=== PATIENT | male | born 1950 | race Caucasian/White ===

== ENCOUNTER 2017-04-16 21:42 | Observation (INO) ==
--- NOTE | 2017-04-16 22:05 | Emergency Department Note ---
Disposition Clinical Impression: Chest pain Disposition: Admitted As Inpatient Condition: Undetermined General Adult HPI - General Chief complaint: ED Chest Pain Stated complaint: Chest pressure, arm numbness Time Seen by Provider: 04/16/17 22:01 Source: patient Limitations: no limitations - History of Present Illness Pain Scale: 5 - Related Data Home Medications Medication Instructions Recorded Confirmed Lisinopril-HCTZ 10-12.5 [Prinzide 1 each PO DAILY 04/17/17 04/17/17 10-12.5] Rosuvastatin Calcium [Crestor] 40 mg PO DAILY 04/17/17 04/17/17 Allergies Allergy/AdvReac Type Severity Reaction Status Date / Time No Known Allergies Allergy Verified 06/24/15 15:38 Past Medical History - Past Medical History Medical history: Reports: cancer, hypertension Surgical history: Reports: cancer surgery Psychiatric history: Reports: no psych history - Social History Smoking Status: Former smoker Smokeless Tobacco Status: No Alcohol use: Reports: none Drug use: Reports: none Physical Exam - General Limitations: no limitations General appearance: alert, in no apparent distress Course Vital Signs Temperature 97.8 F 04/16/17 21:44 Pulse Rate 82 04/16/17 21:44 Respiratory Rate 18 04/16/17 21:44 Blood Pressure 186/96 04/16/17 21:44 O2 Sat by Pulse Oximetry 98 04/16/17 21:44 Temperature 97.5 F L 04/17/17 03:02 Pulse Rate 55 04/17/17 03:02 Respiratory Rate 16 04/17/17 03:02 Blood Pressure 120/63 04/17/17 03:02 O2 Sat by Pulse Oximetry 93 04/17/17 03:02 Oxygen Delivery Oxygen Delivery Room Air Medical Decision Making - Lab Data Result diagrams: 04/16/17 22:59 04/16/17 22:59 Lab Results 04/16/17 04/16/17 04/16/17 Range/Units 22:59 22:59 22:59 WBC 6.8 (4.3-11.1) K/mcL RBC 4.52 (4.19-5.50) M/mcL Hgb 12.9 (12.9-16.9) g/dL Hct 38.9 (37.5-50.1) % MCV 86.1 (83.0-100.0) fL MCH 28.5 (28.0-33.3) pg MCHC 33.2 (31.6-35.5) g/dL RDW 12.7 (11.5-14.5) % Plt Count 174 (140-400) K/mcL MPV 11.9 (9.4-12.4) fL Immature Gran % 0.3 (0-4) % Seg Neutrophils % 57.5 % Lymphocytes % 27.3 % Monocytes % 9.1 % Eosinophils % 5.1 % Basophils % 0.7 % Neutrophils # 3.9 (1.6-8.9) K/mcL Lymphocytes # 1.9 (0.6-4.6) K/mcL Monocytes # 0.6 (0.0-1.3) K/mcL Eosinophils # 0.4 (0.0-0.6) K/mcL Basophils # 0.1 (0.0-0.2) K/mcL Sodium 139 (136-145) mEq/L Potassium 4.1 (3.5-4.5) mEq/L Chloride 106 (98-109) mEq/L Carbon Dioxide 25 (19-29) mEq/L BUN 18 (8-26) mg/dL Creatinine 1.27 H (0.72-1.25) mg/dL Est GFR ( Amer) > 60 (> 60) Est GFR (Non-Af Amer) 56 L (> 60) BUN/Creatinine Ratio 14 (6-26) Glucose 101 H (70-99) mg/dL Calculated Osmolality 290 (280-300) Calcium 9.4 (8.6-10.8) mg/dL Troponin I 0.01 (0-0.03) ng/mL Attestation Statement - Attestation Attestation: I examined this patient and my medical decision-making was reviewed with the ASSEMBLER TRACTOR/PA/Advanced Practice Nurse/Resident Physician. I agree with the documented findings, disposition and treatment plan as described except to the extent set forth below. Face to face time provided Patient presents with chest discomfort. He also had some numbness involving his left upper extremity today. He appears in no acute distress. EKG reviewed by me. Patient seen and evaluated in conjunction with the resident physician
--- NOTE | 2017-04-16 22:08 | Emergency Department Note ---
Disposition Clinical Impression: Chest pain Qualifiers: Chest pain type: unspecified Qualified Code(s): R07.9 - Chest pain, unspecified Disposition: Admitted As Inpatient Condition: Undetermined Referrals: Stepan Pelayo DO [Primary Care Provider] - Forms: ED Satisfaction Letter Time of Disposition: 00:08 Chest Pain HPI - General Chief Complaint: ED Chest Pain Stated Complaint: Chest pressure, arm numbness Time Seen by Provider: 04/16/17 22:01 Source: patient Mode of arrival: ambulatory Limitations: no limitations Vital Signs Reviewed: Yes Nursing Notes Reviewed: Yes - History of Present Illness HPI Narrative: 66-year-old male with recent diagnosis of hypertension and hypercholesterolemia arrives [facility] emergency department complaining of left- sided chest pain that started earlier today. The patient does state for the past few days he has felt fatigued and unable to perform his daily tasks because he has felt run down. The patient denies any difficulty breathing with this episode. The patient does state that he was expressing left arm numbness prior to the chest pain. This occurred at roughly 5:00 this evening. The patient denies any specific symptoms at this time. He states the numbness turned into a pressure when he started experiencing a left-sided chest pain. Both of which are subsided at this time. Patient denies any other complaints at this time. Patient states he is scared that he is having an MD. The patient 's last stress test was over 5 years ago. No smoking, no diabetes, family history of father at age 55 having MD. Patient denies any other complaints. Pt complaint: chest pain Onset (ago): hour(s) (5) Pain Location: left chest Severity: moderate Severity scale (1-10): 5 Quality: tightness Pain Radiation: none Improves with: nothing Worsens with: nothing Associated symptoms: Reports: diaphoresis Treatments prior to arrival chest pain: none - Related Data On Oral Contraceptives: No Previous Rx's Medication Instructions Recorded Cephalexin [Keflex] 500 mg PO QID #28 capsule 06/24/15 Allergies Allergy/AdvReac Type Severity Reaction Status Date / Time No Known Allergies Allergy Verified 06/24/15 15:38 All systems ED: reviewed and negative except as stated. Constitutional: Denies: fever, chills, weakness, weight change Eyes: Denies: eye pain, eye discharge, vision change ENT ED: Denies: ear pain, throat pain, dental pain, hearing loss, epistaxis, congestion, dysphagia Cardiovascular: Reports: chest pain. Denies: palpitations, dyspnea on exertion , edema, syncope Respiratory: Denies: cough, dyspnea, wheezes, hemoptysis, stridor Gastrointestinal: Denies: abdominal pain, nausea, vomiting, diarrhea, constipation, hematemesis, melena, hematochezia Musculoskeletal: Denies: back pain, neck pain, arthralgia, myalgia Integumentary: Denies: rash, abrasion, lesions Neurological: Denies: headache, weakness, numbness, paresthesias, confusion, abnormal gait, vertigo Chest Pain PMH - Past Medical History Medical history: Reports: cancer, hypertension Surgical history: Reports: cancer surgery Psychiatric history: Reports: no psych history Prior Cardiac Testing/Procedures: Stress Test (>5 years ago) - Social History Smoking Status: Former smoker Alcohol use: Reports: none Drug use: Reports: none Physical Exam - General Limitations: no limitations General appearance: alert, in no apparent distress - ENT ENT exam: normal exam, normal oropharynx, mucous membranes moist - Neck Neck exam: Present: normal inspection, full ROM, trachea midline - Chest Chest inspection: Present: normal inspection, symmetric chest wall rise - Respiratory Respiratory exam: Present: normal lung sounds bilaterally - Cardiovascular Cardiovascular exam: Present: regular rate, normal rhythm, normal heart sounds - Abdominal Exam Abdominal exam: Present: soft, Non-Tender. Absent: tenderness, distention, guarding, rebound, rigidity - Extremities Exam Extremities exam: Present: normal inspection, full ROM. Absent: tenderness, pedal edema Course Vital Signs Temperature 97.8 F 04/16/17 21:44 Pulse Rate 82 04/16/17 21:44 Respiratory Rate 18 04/16/17 21:44 Blood Pressure 186/96 04/16/17 21:44 O2 Sat by Pulse Oximetry 98 04/16/17 21:44 Temperature 97.8 F 04/16/17 21:44 Pulse Rate 62 04/16/17 23:36 Respiratory Rate 18 04/16/17 23:36 Blood Pressure 145/86 04/16/17 23:36 O2 Sat by Pulse Oximetry 96 04/16/17 23:36 Oxygen Delivery Oxygen Delivery Room Air Chest Pain - MDM Narrative Medical decision making narrative: Negative workup for any acute findings here in the emergency Department. Given the patient's symptoms and history without a previous workup we will admit the patient to the hospital for chest pain workup. Patient agrees to plan. Accepted by the hospitalist. - Lab Data Lab results reviewed: Yes I reviewed the patient's lab results. Result diagrams: 04/16/17 22:59 04/16/17 22:59 Lab Results 04/16/17 04/16/17 04/16/17 Range/Units 22:59 22:59 22:59 WBC 6.8 (4.3-11.1) K/mcL RBC 4.52 (4.19-5.50) M/mcL Hgb 12.9 (12.9-16.9) g/dL Hct 38.9 (37.5-50.1) % MCV 86.1 (83.0-100.0) fL MCH 28.5 (28.0-33.3) pg MCHC 33.2 (31.6-35.5) g/dL RDW 12.7 (11.5-14.5) % Plt Count 174 (140-400) K/mcL MPV 11.9 (9.4-12.4) fL Immature Gran % 0.3 (0-4) % Seg Neutrophils % 57.5 % Lymphocytes % 27.3 % Monocytes % 9.1 % Eosinophils % 5.1 % Basophils % 0.7 % Neutrophils # 3.9 (1.6-8.9) K/mcL Lymphocytes # 1.9 (0.6-4.6) K/mcL Monocytes # 0.6 (0.0-1.3) K/mcL Eosinophils # 0.4 (0.0-0.6) K/mcL Basophils # 0.1 (0.0-0.2) K/mcL Sodium 139 (136-145) mEq/L Potassium 4.1 (3.5-4.5) mEq/L Chloride 106 (98-109) mEq/L Carbon Dioxide 25 (19-29) mEq/L BUN 18 (8-26) mg/dL Creatinine 1.27 H (0.72-1.25) mg/dL Est GFR ( Amer) > 60 (> 60) Est GFR (Non-Af Amer) 56 L (> 60) BUN/Creatinine Ratio 14 (6-26) Glucose 101 H (70-99) mg/dL Calculated Osmolality 290 (280-300) Calcium 9.4 (8.6-10.8) mg/dL Troponin I 0.01 (0-0.03) ng/mL - Radiology Data Radiology results reviewed: Yes I reviewed the patient's radiology results. - EKG Data EKG attestation: Yes I reviewed and interpreted this EKG. EKG results narrative: Heart rate 71 bpm. NC interval 176 ms. QTC 374 ms. Normal axis. Normal sinus rhythm. No ST elevation or ST depression noted. EKG from April 042014 similar appearance of the exception of mild changes to QRS in lead 3. No other acute changes noted. Heart Score - Score History: Moderately Suspicious EKG: Normal Age: Greater than 65 Risk Factors: 1-2 risk factors Troponin: Less than normal limit HEART Score Total: 4
[2017-04-16 23:08] LABS: Basophils # 0.1 K/mcL (0.0-0.2); Basophils % 0.7 %; Eosinophils # 0.4 K/mcL (0.0-0.6); Eosinophils % 5.1 %; Hematocrit 38.9 % (37.5-50.1); Hemoglobin 12.9 g/dL (12.9-16.9); Immature Granulocytes % 0.3 % (0-4); Lymphocytes # 1.9 K/mcL (0.6-4.6); Lymphocytes % 27.3 %; Mean Corpuscular HGB Conc 33.2 g/dL (31.6-35.5); Mean Corpuscular Hemoglobin 28.5 pg (28.0-33.3); Mean Corpuscular Volume 86.1 fL (83.0-100.0); Mean Platelet Volume 11.9 fL (9.4-12.4); Monocytes # 0.6 K/mcL (0.0-1.3); Monocytes % 9.1 %; Neutrophils # 3.9 K/mcL (1.6-8.9); Platelet Count 174 K/mcL (140-400); Red Blood Count 4.52 M/mcL (4.19-5.50); Red Cell Distribution Width 12.7 % (11.5-14.5); Segmented Neutrophils % 57.5 %
[2017-04-16 23:40] LABS: BUN/Creatinine Ratio 14 (6-26); Blood Urea Nitrogen 18 mg/dL (8-26); Calcium 9.4 mg/dL (8.6-10.8); Carbon Dioxide 25 mEq/L (19-29); Glucose 101 mg/dL (70-99); Osmolality,Calculated 290 (280-300); Sodium 139 mEq/L (136-145); eGFR For African Americans > 60 (> 60); eGFR For Non-African Americans 56 (> 60)
[2017-04-16 23:41] LABS: Chloride 106 mEq/L (98-109); Potassium 4.1 mEq/L (3.5-4.5)
[2017-04-17] MEDS ORDERED: 0.9 % Sodium Chloride 1,000 ML IVC ONE (00:08)
[2017-04-17] MEDS ORDERED: 0.9 % Sodium Chloride 1,000 ML IVC SCH (02:45)
--- NOTE | 2017-04-17 02:54 | Internal Med History&Physical ---
Date of Encounter: 04/17/17 Time of Encounter: 02:49 Assessment and Plan (1) Lightheadedness Current visit: Yes Status: Acute Suspected this is related to orthostasis probably related to recent initiation of diuretics causing element of dehydration and hypotension. Check orthostatics , hydrate. PT/OT. No focal neuro deficits. Check stool for occult blood (2) Chest pain Current visit: Yes Status: Acute EKG shows no ischemic changes. Serial cardiac markers. Patient drives his bike 20 miles every day without any chest pain. If cardiac enzymes are normal stress tests will be performed Qualifiers: Chest pain type: unspecified Qualified Code(s): R07.9 - Chest pain, unspecified Internal Medicine - H&P: HPI Chief complaint: chest pain History of present illness: Mr. Galvez is a 66 year old male was recently diagnosed hypertension a month ago started on lisinopril hydrochlorothiazide combination, dyslipidemia. Was otherwise fairly active, rides his bike 20 miles every day, presents an emergency room today with a man complaining of chest pain. Patient mentioned that for the past couple weeks is not been riding his bike because he has been feeling more lethargic as well as lightheaded especially when he stands up. He has actually been diagnosed with hypertension about a month ago started on lisinopril/hydrochlorothiazide combination. He has been checking his blood pressure during that period mentioned that his pressure was occasionally low with systolic and the 100s range. Today patient started feeling left pectoral chest pain with numbness in the left upper extremity was concerned that came to hospital for further evaluation. He denies any relational of pain to exertion. Never gets this pain with when he exerts himself. More single pane with coughing or deep inspiration. His hemoglobin stable at baseline. He does not take any anticoagulants medications. Denies any focal upper or lower extremity weakness or speech sluriness Past Med Surg Social Fam HX - Past Medical History Medical history: cancer, hypertension Psychiatric history: no psych history - Past Surgical History Surgical History: cancer surgery - Social History Smoking Status: Former smoker Smokeless Tobacco Status: No Alcohol use: none Drug use: none - Family History Father Hx Family Cardiac Disorders: Yes (MYOCARDIAL INFARCTION.) Internal Medicine - H&P: Meds Lisinopril-HCTZ 10-12.5 [Prinzide 10-12.5] 1 each PO DAILY 04/17/17 [History] Rosuvastatin Calcium [Crestor] 40 mg PO DAILY 04/17/17 [History] Allergies No Known Allergies Allergy (Verified 06/24/15 15:38) All Systems PM: A 10-system review of systems was performed and is negative for pertinent findings except as documented above in the HPI. Review of systems: 10 point review of systems is negative except for HPI - Constitutional Vitals: Temp Pulse Resp BP Pulse Ox 97.5 F L 58 16 151/80 94 04/17/17 00:55 04/17/17 00:55 04/17/17 00:55 04/17/17 00:55 04/17/17 00:55 Exam: Gen.: patient is alert oriented times 3 not in distress cardiac: Normal S1, S2, no additional sounds or murmurs chest: Clear to auscultation Abdomen: Soft, non tender, non-distended. No rebound lower extremity Lax calf muscles no swelling Neuro: no focal deficits Internal Med - H&P Results - Labs CBC & Chem 7: 04/16/17 22:59 04/16/17 22:59
[2017-04-17] MEDS ORDERED: *HR* Heparin 5,000 UNIT/ML VIAL SQ SCH (06:00)
[2017-04-17] MEDS ORDERED: Famotidine 20 MG TABLET PO SCH (09:00)
--- NOTE | 2017-04-17 13:43 | Nuclear Medicine Stress Report ---
Exercise Nuclear Stress Name: Jorge Galvez Date of Study: 04/17/2017 Date: 1950 Ht: 78.0 in Medical Record#: [id number] Age: 66 Wt: 261.0 lb Gender: Male Order #: [id number] Location: [facility] IP Room: [facility] Supervising Provider: Nancy Quach CNP Reading Physician: Gee Chen DO, FAC, [facility] Ordering Physician: Ny Bellamy CNP Primary Care Physician: Nigel Pardo MD Stress Technologist: Caleb Ann CRT Coconut Candy Maker: Hayde Senior Indications: Chest pain Impression: Exercise ECG is negative for ischemia. Patient had no chest pain during stress. Gated EF = 56%. There is a small sized, mild intensity, fixed apical inferior and apex defect c/w artifact. Perfusion imaging was negative for ischemia or infarct. History: Hypertension Hypercholesteremia Stress Test Summary: Stress Test Type: Treadmill Baseline Information: Initial Heart Rate: 64 Blood Pressure: 142/80 Stress Information: Stress Time: 7 min 57 sec Test Terminated Due to (primary): Leg discomfort Maximum Blood Pressure: 182/84 Maximum Heart Rate: 133 Percent Maximum Heart Rate Achieved: 88 Double Product: [id number] METS Reached: 10.1 Symptoms: Leg discomfort, Shortness of breath Nuclear Summary: SPECT myocardial perfusion imaging using Tc99m Sestamibi given intravenously was performed at rest and following cardiac stress testing. The resting images were obtained following initial dose of 11.4 mCi. Following stress an additional dose of 35.3 mCi was given at peak exercise or 30 seconds post regadenoson infusion. Medication Given: Time Medication Dose Units Route Findings: Stress Note * Resting ECG demonstrated normal sinus rhythm. * No baseline arrhythmias were noted. * Exercise ECG is negative for ischemia. * No arrhythmias were noted during stress. * The exercise capacity was good. * Patient had no chest pain during stress. Hemodynamic responses * Normal hemodynamic responses to exercise. Study Quality * Study quality is average. Gated EF % * Gated EF = 56%. Left Ventricle * LVEDV = 137 mL. NORMALS * Normal wall motion. Inferior Perfusion Rest * The apical inferior segment shows a mild reduction in perfusion. Inferior Perfusion Stress * The apical inferior segment shows a mild reduction in perfusion. TID * No evidence of transient ischemic dilatation. TID ratio = 1.03. Lung Uptake * There is no evidence of increase lung uptake. Updated by Gee Chen DO, CAMRYN, DAMASO, FASYAMINI on 04/17/2017 11:09:05 AM electronically signed on 04/17/2017 11:09:53 AM with status of Final
[2017-04-17 14:54] VITALS: BP 130/77
--- NOTE | 2017-04-17 17:09 | Discharge Summary ---
Date of Encounter: 04/17/17 Time of Encounter: 14:30 - Discharge Diagnosis (1) HTN (hypertension) Priority: Secondary Status: Chronic Comments: Patient had gone off his blood pressure medication for approximately one year and there was put back on his blood pressure medication last month. He was put on lisinopril-HCTZ. He has acute kidney injury consistent with mild dehydration , we will start him on amlodipine and have him follow-up with his outpatient provider. (2) Chest pain Priority: Primary Status: Resolved Comments: Patient denied chest pain while admitted. Chest x-ray negative. Stress test negative. Echo unremarkable. Carotid ultrasound report pending at time of discharge, follow-up outpatient. ACS ruled out. Qualifiers: Chest pain type: unspecified Qualified Code(s): R07.9 - Chest pain, unspecified (3) Lightheadedness Priority: Primary Status: Resolved - Discharge Medications Prescriptions: amLODIPine [Norvasc] 5 mg PO DAILY #30 tablet Home Medications: Rosuvastatin Calcium [Crestor] 40 mg PO DAILY 04/17/17 [History] amLODIPine [Norvasc] 5 mg PO DAILY #30 tablet 04/17/17 [Rx] Allergies/Adverse Reactions: Allergies No Known Allergies Allergy (Verified 06/24/15 15:38) Procedures/tests Complete & Pending: Procedures Performed prior 72 hours Category Date Time Status NM mary perf SPECT multi [NM] Routine Exams 04/17/17 03:16 Taken EV carotid duplex imaging BI Routine Y 04/17/17 02:48 Completed EV echocardiogram Routine Y 04/17/17 02:47 Completed SP exercise nuclear stress Routine Y 04/17/17 07:15 Completed Date of admission: 04/17/17 00:22 Primary care physician: Stepan Pelayo Consults: 04/17/17 02:42 Consult to Physical Therapy [CONS] Routine Comment: Evaluate, develop and implement POC Reason for Consult: weakness OT [Consult to Occupational Therapy] [CONS] Routine Comment: Evaluate, develop and implement POC Reason for Consult: weakness Discharging clinician: Ny Archuleta Anticipated date of discharge: 04/17/17 - Patient Status Disposition: Home, Self-Care Condition: Good Functional capacity at discharge: independent ambulation Overall status at discharge: patient is back to baseline - Discharge Instructions Instructions: Chest Pain (DC) Follow Up With: Stepan Pelayo DO [Primary Care Provider] - 04/24/17 9:45 am Additional Instructions: Follow-up with primary care provider as scheduled, check blood pressure daily and keep a log for your primary care provider. - Diet and Activity Activity: increase activity as tolerated Diet: low salt diet Hospital course: Mr. Galvez is a 66 year old male with past medical history of hypertension and hyperlipidemia. Patient presented to the emergency department chief complaint of chest pain. Patient typically rides his bike 20+ miles daily and is quite active. Patient had seen his primary care provider approximately one month prior to presentation due to elevated blood pressure readings at home. He had been taken off his lisinopril-HCTZ for approximately one year and this medication was restarted when his blood pressure trended back up. Patient is stating over the past couple weeks he has not been noted right his bike because he has been feeling more lethargic and lightheaded when he stands up. Patient has been checking his blood pressure home with hypotension noted. On the day of presentation, patient started to exhibit left pectoral chest pain with numbness in the left upper extremity prompting his presentation to the emergency department. Workup in the emergency department unremarkable. Chest x -ray negative. Patient was admitted to the hospitalist service for further evaluation and management. Troponins were negative. Echocardiogram unremarkable with ejection fraction of 60% and mild diastolic dysfunction. Patient euvolemic on examination throughout this admission. Patient was asymptomatic and denied pain or lightheadedness throughout this admission. Orthostatic vital signs unremarkable. Patient had an exercise nuclear stress test that was negative and revealed an ejection fraction of 56%. Patient did have mild acute kidney injury so his FAY inhibitor and his HCTZ were held. Upon discharge, patient was started on low-dose amlodipine and instructed to check his blood pressure daily and keep a log for his primary care provider. Of note, carotid ultrasound results pending at time of discharge, recommend follow-up outpatient. Patient was seen and evaluated by occupational and physical therapy both of whom surmise he had no needs. He was discharged home in stable condition with close outpatient follow-up recommended. ITS Impressions Chest X-Ray 04/16/17 22:09 IMPRESSION: Limited hypoventilatory study. No acute abnormality detected. D/ / Mohinder Austin MD / Mohinder Austin MD Interpreting Provider: Mohinder Austin MD Echocardiogram impressions: LVEF 60%. Normal LV chamber size, wall thickness and function. Mild left ventricular diastolic dysfunction. Normal right ventricular structure and function. No significant valvular dysfunction. No pulmonary hypertension. Exercise nuclear stress test impression: Exercise ECG was negative for ischemia. Patient had no chest pain during stress. Gated ejection fraction equals 56%. There is a small size, mild intensity, fixed apical inferior and apex defect consistent with artifact. Perfusion imaging was negative for ischemia or infarct. - Time Spent with Patient Total time spent providing and/or coordinating discharge services: - Constitutional Vitals: Temp Pulse Resp BP Pulse Ox 97.8 F 63 14 130/77 95 04/17/17 14:51 04/17/17 14:51 04/17/17 14:51 04/17/17 14:51 04/17/17 14:51 General appearance: Present: A&O X 3, pleasant, no acute distress, answers questions appropriately - Head Head exam: Present: atraumatic, normocephalic - Eye Eye exam: Present: PERRL, conjuntiva pink, sclera anicteric Pupils: Present: PERRL - Neck Neck exam general surgery: Present: supple, trachea midline. Absent: lymphadenopathy - Respiratory Respiratory exam: Present: CTAB. Absent: accessory muscle use, rales, respiratory distress, rhonchi, wheezes - Cardiovascular Cardiovascular exam: Present: RRR, +S1, +S2. Absent: diastolic murmur, gallop, rubs, systolic murmur - GI/Abdominal GI/Abdominal exam: Present: normal bowel sounds, soft, no peritoneal signs. Absent: distended, tenderness - Extremities Exam Extremities exam: Present: warm, radial pulses palpable and symetrical. Absent : calf tenderness, cyanotic, pedal edema - Neurological Exam Neurological exam: Present: alert, CN II-XII intact, normal gait, oriented X3, no focal deficits, strengths equal and symetr throughout. Absent: pronater drift, facial droop, speech deficit - Skin Skin exam: Present: dry, intact, normal color, warm
--- NOTE | 2017-04-18 12:34 | Electrocardiograph Report ---
[place] [id number] Test Date: 2017-04-16 Pat Name: Jorge Galvez Department: 103 Room: 3B Gender: M Chairman: : 1950 Requested By: Pb Alcaraz Order Number: [id number] Reading MD: Adolfo Dc Measurements Intervals [place] Rate: 71 P: 33 IA: 176 QRS: 19 QRSD: 92 T: 34 QT: 351 QTc: 374 Interpretive Statements SINUS RHYTHM Electronically Signed On 04-18-2017 12:32:48 EDT by Adolfo Dc
--- NOTE | 2017-04-18 12:43 | Carotid Imaging Report ---
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 Recommendations: Test completed on 04/17/2017 at 8:45:00 am. Findings Carotid Duplex: Right: The right proximal common carotid artery has a PSV of 103 cm/s and a EDV of 20 cm/s. The right mid common carotid artery has a PSV of 95 cm/s and a EDV of 23 cm/s. The right distal common carotid artery has a PSV of 80 cm/s and a EDV of 23 cm/s. There is nonstenotic plaque in the right bifurcation with a PSV of 79 cm/s and a EDV of 23 cm/s. There is smooth heterogeneous plaque. There is nonstenotic plaque in the right proximal internal carotid artery with a PSV of 65 cm/s and a EDV of 25 cm/s. There is smooth heterogeneous plaque. The right mid internal carotid artery has a PSV of 96 cm/s and a EDV of 43 cm/s. The right distal internal carotid artery has a PSV of 79 cm/s and a EDV of 28 cm/s. The right eca has a PSV of 92 cm/s and a EDV of 13 cm/s. The right vertebral artery has a PSV of 42 cm/s and a EDV of 9 cm/s. Left: The left proximal common carotid artery has a PSV of 157 cm/s and a EDV of 35 cm/s. The left mid common carotid artery has a PSV of 72 cm/s and a EDV of 21 cm/s. The left distal common carotid artery has a PSV of 105 cm/s and a EDV of 29 cm/s. There is nonstenotic plaque in the left bifurcation with a PSV of 94 cm/s and a EDV of 28 cm/s. There is smooth heterogeneous plaque. The left proximal internal carotid artery has a PSV of 83 cm/s and a EDV of 30 cm/s. The left mid internal carotid artery has a PSV of 106 cm/s and a EDV of 47 cm/s. The left distal internal carotid artery has a PSV of 98 cm/s and a EDV of 37 cm/s. The left eca has a PSV of 108 cm/s and a EDV of 11 cm/s. The left vertebral artery has a PSV of 57 cm/s and a EDV of 16 cm/s. Prior Study: No prior study available for comparison. Carotid Results Right PSV EDV Assessment Proximal CCA 103 20 Normal Mid CCA 95 23 Normal Distal CCA 80 23 Normal Bifurcation 79 23 Non Stenotic Plaque Proximal ICA 65 25 Non Stenotic Plaque Mid ICA 96 43 Normal Distal ICA 79 28 Normal ECA 92 13 Normal Vertebral Artery 42 9 Normal Left PSV EDV Assessment Proximal CCA 157 35 Normal Mid CCA 72 21 Normal Distal CCA 105 29 Normal Bifurcation 94 28 Non Stenotic Plaque Proximal ICA 83 30 Normal Mid ICA 106 47 Normal Distal ICA 98 37 Normal ECA 108 11 Normal Vertebral Artery 57 16 Normal Ratio's Right ICA/CCA Ratio: 1.01 ICA/CCA Values: 96/95 Left ICA/CCA Ratio: 1.47 ICA/CCA Values: 106/72 Updated by Dc Escalante MD, FACS on 04/18/2017 12:39:01 PM Dc Escalante MD electronically signed on 04/18/2017 12:39:19 PM with status of Final
[2017-04-19 20:30] LABS: CK-BB (CK isoenzymes) 0 % (0-0); CK-MB (CK isoenzymes) 0 % (0-4); CK-MM (CK-isoenzymes) 100 % (96-100)
[2017-04-20 09:22] LABS: CK Total (Ck Isoenzymes) 84 U/L (20-200)
[2017-04-20 19:08] LABS: CK-BB (CK isoenzymes) 0 % (0-0); CK-MB (CK isoenzymes) 0 % (0-4); CK-MM (CK-isoenzymes) 100 % (96-100)
[2017-04-21 07:28] LABS: CK Total (Ck Isoenzymes) 89 U/L (20-200)
== END 2017-04-17 17:38 | disposition home or self-care (01) ==
LOC: EMEROO 21:42 → 3BNU 21:42
PROVIDERS: ADMIT Hospitalist; ATTEND Nurse Practitioner Family